=== PATIENT | male | born 1985 | race Caucasian/White ===

== ENCOUNTER → 2018-04-26 | Outpatient (CLI) | payer BC ==
--- NOTE | 2018-04-26 18:01 | MRI ---
EXAM DESCRIPTION: Shoulder,Left: Magnetic Resonance Imaging. CLINICAL HISTORY: PAIN IN LEFT SHOULDER COMPARISON: None. TECHNIQUE: Multiplanar, high-field MRI, multiple sequences, without contrast, left shoulder. FINDINGS: Intermediate signal in the mid and distal supraspinatus tendon with questionable fluid signal. Tendon also appears attenuated. Possible edema also at the confluence between the supraspinatus and infraspinatus tendons. Normal signal in the mid and anterior supraspinatus tendon fibers. Minimal edema in the subacromion/subdeltoid bursa. Normal signal in the remaining tendons of the rotator cuff. Normal marrow signal in the humeral head. Lobulated fluid collection between the mid deltoid muscle fibers in the subcutaneous tissues. No significant muscle atrophy. No effusion in the AC joint. Downsloping of the lateral acromion. Type II curvature of the lateral acromion. Coracoid ligaments are intact. Effusion in the subcoracoid bursa but no loose bodies. Normal marrow signal. Minimal narrowing of the supraspinatus tendon outlet. Glenohumeral joint effusion. Normal signal in the glenoid labrum. Normal signal in the bicipital labral anchor. Long head biceps tendon within the bicipital groove. No glenohumeral osteochondral lesions. No loose bodies in the joint space. IMPRESSION: 1. Minimal degeneration and attenuation of the infraspinatus. Questionable focal edema in the distal tendon. Fluid between the supraspinatus and infraspinatus tendons which may be related to strain of the supraspinatus musculotendinous junction. Minimal edema in the subacromion/subdeltoid bursa. 2. Fluid collection between the middle deltoid muscle and the subcutaneous tissues. Unknown etiology. Normal signal in the muscular fibers. 3. subcoracoid bursitis. No loose bodies. Minimal narrowing of the supraspinatus tendon outlet. 4. Glenohumeral joint effusion. No loose bodies. No significant abnormalities of the bicipital labral anchor, glenoid labrum, or osteochondral structures in the glenohumeral joint. If these findings are discordant with clinical findings, consider MR arthrography of the left shoulder. Electronically signed by: Walter Chamorro MD 04/26/2018 5:32 PM CDT
== END ==
LOC: MRI 11:11
PROVIDERS: ATTEND Family Medicine
DX: M25.512 Pain in left shoulder (principal)

== ENCOUNTER → 2018-05-16 | Outpatient (CLI) | payer BC | LOC: LAB.O 10:07 | PROVIDERS: ATTEND Orthopaedic Surgery | DX: M25.519 Pain in unspecified shoulder (principal) ==